=== PATIENT | male | born 1955 | race Caucasian/White ===

== ENCOUNTER 2020-03-28 11:35 | Day surgery (SDC) | payer BC ==
[~2020-03-28] VITALS: Ht 177.8 cm; Wt 101.8 kg
[~2020-03-28 11:35] MED LIST: FLOMAX0.4 MG PO
[2020-03-28] MEDS ORDERED: IRBESARTAN150 MG PO (12:01)
--- NOTE | 2020-03-28 15:23 | NUR ---
03/28/20 1523 Maude Breen 1515 PATIENT ARRIVES TO PACU RESTING WITH EYES CLOSED, BUT ABLE TO ANSWER QUESTIONS. RESP EVEN AND UNLABORED, ROOM AIR SATS >93%. DENIES PAIN OR NAUSEA.
--- NOTE | 2020-03-28 18:21 | OR ---
[facility] [address] [place], [place] [address] Signed DATE OF OPERATION: 03/28/2020 SURGEON: Jose Luis Be MD PREOPERATIVE DIAGNOSIS: Colon screening. POSTOPERATIVE DIAGNOSES: 1. Extensive sigmoid diverticulosis. 2. Polyps x2 (excised). PROCEDURE: Total colonoscopy to cecum with hot snare polypectomy x2. ANESTHESIA: Intravenous sedation, fentanyl 200 mcg and Versed 10 mg. INDICATIONS: This 64-year-old white man is a patient of Dr. Kennedy Diana, [place]. He is referred for colon screening. He had been offered in the past, but did not have time to do it and now presents for colonoscopy. Notably, the patient did suffer COVID-19 infection several months ago and recovered fully from that. His preoperative COVID test is negative. He is admitted to undergo colonoscopy at this time. He understands the risks of bleeding, infection, and perforation. FINDINGS: Deep sedation was hard to achieve. Procedure was accomplished safely, but note is made that he may benefit from colonoscopy with propofol in the future. The prep was quite good. He had extensive diverticulosis of the sigmoid and left colon. He had two semi-pedunculated polyps, one in the right colon, one in the sigmoid; both were excised with hot snare polypectomy technique. Despite efforts to do so, the right-sided polyp was not retrieved. DESCRIPTION OF PROCEDURE: The patient was brought to the endoscopy suite and placed in lateral decubitus position, given intravenous sedation to the point of slurred speech and nystagmus. Digital rectal examination was normal. The Olympus video colonoscope was passed through the rectum and manipulated into the sigmoid. He became somewhat uncomfortable with these maneuvers due to extensive diverticulosis. Additional sedation was given as needed. The scope was Electronically Signed By: JOSE LUIS BE MD 03/28/20 1821 PATIENT NAME: JONNIE SHAFER OPERATIVE REPORT DATE OF : 51 REPORT #: [id number] PHYSICIAN: JOSE LUIS BE MD PCP: ARASH KENNEDY REPORT IS CONFIDENTIAL AND NOT TO BE RELEASED WITHOUT AUTHORIZATION [facility] [address] [place], [place] [address] Signed advanced and became a bit more active and somewhat restless and additional sedation given further. The scope was ultimately advanced with various maneuvers to the right colon, where a semi-pedunculated polyp was noted. This was excised with hot snare polypectomy technique. The polyp was noted to be displaced proximally and maneuvers to retrieve the polyp were unsuccessful due to the patient's discomfort movement so forth despite additional sedation. Ultimately, the cecum was intubated. The ileocecal valve and appendiceal orifice were noted to be normal. Extensive searching for the polyp upon withdrawal of the scope was unsuccessful initially, but with a trap on the endoscopy device, the polyp was thought to have been in that implement. The scope was then withdrawn and examination undertaken more fully. In the sigmoid colon, there was a somewhat larger, bilobed, pedunculated adenomatous polyp. This was excised with hot snare polypectomy technique. Specimen was grasped and withdrawn offloading the polyp. Reintroduction was undertaken to the site of excision, showing good hemostasis. Numerous diverticula were noted in the area. Retroflexed view of the rectum upon withdrawal showed some internal hemorrhoidal changes, no sign of other polyps or other problem. The scope was removed. The polyp trap was examined and found not to have the lost polyp from the right colon after all. There is a little at that point. The patient was then taken to the recovery room in good condition, having suffered no complication. CONCLUDING DIAGNOSIS: Polyps x2. PLAN: Recommend repeat colonoscopy in 5 years or sooner if clinically indicated. He will return to the ongoing care of Callie Morales. MD BOONE Hua/NAZIAL /[id number] Copies: Electronically Signed By: JOSE LUIS BE MD 03/28/20 182 PATIENT NAME: JONNIE SHAFER OPERATIVE REPORT DATE OF : 51 REPORT #: [id number] PHYSICIAN: JOSE LUIS BE MD PCP: ARASH KENNEDY REPORT IS CONFIDENTIAL AND NOT TO BE RELEASED WITHOUT AUTHORIZATION [address] [address] Signed ~ Electronically Signed By: JOSE LUIS BE MD 11/12/20 1821 PATIENT NAME: JONNIE SHAFER OPERATIVE REPORT DATE OF : 51 REPORT #: [id number] PHYSICIAN: JOSE LUIS BE MD PCP: ARASH KENNEDY REPORT IS CONFIDENTIAL AND NOT TO BE RELEASED WITHOUT AUTHORIZATION
--- NOTE | 2020-04-01 20:08 | PATH ---
[facility] [address] [place], [place] [address] Signed SPECIMEN(S): A SIGMOID POLYP SPECIMEN SOURCE: A. SIGMOID POLYP CLINICAL HISTORY: Screening. Post: Diverticulosis, colon polyps. Colonoscopy with possible biopsies. MICROSCOPIC DESCRIPTION: Histologic sections of all submitted blocks are examined by light microscopy. These findings, together with the gross examination, support the pathologic diagnosis. FINAL PATHOLOGIC DIAGNOSIS: Colon, sigmoid, polyp, polypectomy: - Tubulovillous adenoma. - Negative for high-grade dysplasia or malignancy. NAL:cml:C2NR GROSS DESCRIPTION: The specimen, labeled "Orlando Shafer, #2," and designated on the requisition "sigmoid polyp," is received in formalin and consists of one red-alejandro soft tissue fragment that measures 0.8 cm in greatest dimension. The specimen is inked, bisected, and entirely submitted in cassette (A1). FB (under the direct supervision of a pathologist) The Gross Description was prepared using a voice recognition system. The report was reviewed for accuracy; however, sound-alike word errors, addition and/or deletions may occur. If there is any question about this report, please contact Client Services. PERFORMING LABORATORY: The technical component was performed by [facility], [address] [place] [id number] (Manager Facility: Halley Mckeon MD; CLIA# [id number]). [facility] [place] [facility], [address] [address] (CLIA# [id number]). Diagnostician: Daniella Medina MD Pathologist Electronically Signed 04/01/2020 PATIENT NAME: ORLANDO SHAFER PATHOLOGY DATE OF : 51 REPORT #: [id number] PHYSICIAN: ANNA PATHOLOGY PCP: ARASH KENNEDY REPORT IS CONFIDENTIAL AND NOT TO BE RELEASED WITHOUT AUTHORIZATION [address] [address] Signed Copies: ~ PATIENT NAME: ORLANDO SHAFER PATHOLOGY DATE OF : 51 REPORT #: [id number] PHYSICIAN: ANNA PATHOLOGY PCP: ARASH KENNEDY REPORT IS CONFIDENTIAL AND NOT TO BE RELEASED WITHOUT AUTHORIZATION
== END 2020-03-28 15:50 | disposition home or self-care (01) ==
LOC: OPS 11:35 → DS 13:00 → OPS 15:50
PROVIDERS: ATTEND Surgery
PROC: 0DBN8ZX Excision of Sigmoid Colon, Via Natural or Artificial Opening Endoscopic, Diagnostic (ICD-10-PCS; principal; 2020-03-28 13:00)
DX: Z12.11 Encounter for screening for malignant neoplasm of colon (principal); D12.5 Benign neoplasm of sigmoid colon; K57.30 Diverticulosis of large intestine without perforation or abscess without bleeding; K64.8 Other hemorrhoids; I10 Essential (primary) hypertension; N40.0 Benign prostatic hyperplasia without lower urinary tract symptoms; Z88.5 Allergy status to narcotic agent; Z87.442 Personal history of urinary calculi; Z79.899 Other long term (current) drug therapy; Z86.19 Personal history of other infectious and parasitic diseases; Z96.652 Presence of left artificial knee joint
CPT/HCPCS: 99153; G0500; J0690; J2250; J3010; J7121